=== PATIENT | male | born 1985 | race Caucasian/White ===

== ENCOUNTER 2019-07-26 20:57 | Emergency (ER) | payer MEDICAID ==
[~2019-07-26] VITALS: Ht 177.8 cm; Wt 74.0 kg
[2019-07-26] MEDS ORDERED: SODIUM CHLORIDE 0.9% 1,000 ML IV ONE (21:07)
[2019-07-26] MEDS ORDERED: ONDANSETRON HCL 4MG/2ML INJ IV STA (21:07)
[2019-07-26 21:38] LABS: *AMPHETAMINES SCREEN URINE PRESUMTIVE POSITIVE (NEGATIVE); *BARBITURATES SCREEN URINE NEGATIVE (NEGATIVE); *BENZODIAZEPINES SCREEN URINE NEGATIVE (NEGATIVE); *COCAINE SCREEN URINE NEGATIVE (NEGATIVE); CANNABINOID URINE SCREEN NEGATIVE (NEGATIVE); METHADONE URINE SCREEN NEGATIVE (NEGATIVE); OPIATES URINE SCREEN PRESUMTIVE POSITIVE (NEGATIVE); PHENCYCLIDINE URINE SCREEN NEGATIVE (NEGATIVE)
[2019-07-26 21:38] LABS: CHLORIDE 112 mEq/L (98-107)
[2019-07-26 21:41] LABS: BASOPHILS % 1.1 % (0.0-2.0); EOSINOPHILS % 1.9 % (0.0-5.0); HEMATOCRIT. 40.2 % (42.0-52.0); HEMOGLOBIN. 13.4 g/dL (14.0-18.0); LYMPHOCYTES % 33.2 % (20.0-50.0); MEAN CORPUSCULAR HEMOGLOBIN 30.2 pg (28.0-32.0); MEAN CORPUSCULAR VOLUME 90.3 fL (80.0-94.0); MEAN PLATELET VOLUME 9.3 fl (7.4-10.4); MONOCYTES % 4.7 % (2.0-8.0); NEUTROPHILS % 59.1 % (40.0-76.0); PLATELET 303 x1000/uL (130-400); RED BLOOD CELL COUNT 4.45 mill/uL (4.7-6.1); RED CELL DISTRIBUTION WIDTH 13.7 % (11.6-14.6)
[2019-07-26 21:43] LABS: ETHANOL BLOOD 165 mg/dL
[2019-07-26 21:48] LABS: CREATINE KINASE 43 IU/L (39-308)
[2019-07-27] MEDS ORDERED: CEPHALEXIN 250MG CAPSULE PO ONE (00:45)
[2019-07-27] MEDS ORDERED: SULFAMETHOXAZOLE/TRIMETHOPRIM 800/160MG TABLET PO ONE (00:45)
[2019-07-27] MEDS ORDERED: POTASSIUM CHLORIDE 20MEQ TABLET SR PO SCH (03:00)
[2019-07-27] MEDS ORDERED: ONDANSETRON 4MG ODT PO ONE (10:45)
[2019-07-27 12:25] VITALS: BP 129/81
== END 2019-07-27 12:27 | disposition home or self-care (01) ==
LOC: EDBD 20:57 → ER 20:57
DX: G92 Toxic encephalopathy (principal); R41.82 Altered mental status, unspecified; F19.10 Other psychoactive substance abuse, uncomplicated; F11.10 Opioid abuse, uncomplicated; F10.10 Alcohol abuse, uncomplicated; T50.905A Adverse effect of unspecified drugs, medicaments and biological substances, initial encounter; Y90.6 Blood alcohol level of 120-199 mg/100 ml; S62.605A Fracture of unspecified phalanx of left ring finger, initial encounter for closed fracture; X58.XXXA Exposure to other specified factors, initial encounter; Y93.9 Activity, unspecified; Y92.9 Unspecified place or not applicable
CPT/HCPCS: 36415; 70450; 73130; 80053; 80305; 80307; 80320; 80329; 82140; 82550; 83690; 84443; 84484; 85025; 93005; 96361; 96374; 99284; J2405; J7030; Q0162; G0480

== ENCOUNTER 2021-04-21 11:50 | Emergency (ER) | payer SELFPAY ==
[~2021-04-21] VITALS: Ht 177.8 cm; Wt 95.0 kg
[2021-04-21 12:04] VITALS: BP 118/80
[2021-04-21] MEDS ORDERED: KETOROLAC 60MG/2ML VIAL IM STA (12:22)
== END 2021-04-21 13:27 | disposition home or self-care (01) ==
LOC: ER 11:59
DX: S52.592A Other fractures of lower end of left radius, initial encounter for closed fracture (principal); F19.10 Other psychoactive substance abuse, uncomplicated; Y08.89XA Assault by other specified means, initial encounter; Y93.9 Activity, unspecified; Y92.9 Unspecified place or not applicable
CPT/HCPCS: 73090; 99283